=== PATIENT | male | born 1995 | race Caucasian/White ===

== ENCOUNTER 2017-03-22 00:52 | Emergency (ER) | payer BC ==
[~2017-03-22] VITALS: Ht 185.4 cm; Wt 147.6 kg
[2017-03-22] MEDS ORDERED: VENTOLIN HFA18 GM IH (01:59)
[2017-03-22] MEDS ORDERED: TESSALON PERLE100 MG PO (01:59)
[2017-03-22] MEDS ORDERED: MEDROL DOSEPAK4 MG PO (01:59)
[2017-03-22] MEDS ORDERED: ZITHROMAX Z-PA250 MG PO (01:59)
[2017-03-22 02:08] VITALS: BP 143/99
== END 2017-03-22 02:15 | disposition home or self-care (01) ==
LOC: EXP 00:52 → EME 00:52 → EXP 02:15
DX: J20.9 Acute bronchitis, unspecified (principal); J45.909 Unspecified asthma, uncomplicated; Z72.0 Tobacco use; Z88.0 Allergy status to penicillin
CPT/HCPCS: 71020; 94640; 99281; 99283; J7512